=== PATIENT | male | born 2005 | race Caucasian/White ===

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

== ENCOUNTER 2025-01-26 22:09 | Emergency (ER) | payer MEDICAID, SELFPAY ==
[2025-01-26] VITALS (13 sets, daily range): BP systolic 100–119; BP diastolic 15–34; PULSE 81–111; RESP 15–21; TEMP 35.8; O2SAT 95–97
--- NOTE | 2025-01-26 22:15 | DI.RAD_ITS ---
Exam(s) XR SHOULDER LT COMPLETE 2+V EXAM: XR SHOULDER LT COMPLETE 2+V CLINICAL HISTORY: fell on left shoulder. TECHNIQUE: 2D digital imaging was performed. COMPARISON: No exams were available for comparison FINDINGS: Five views. There is no evidence of acute fracture nor dislocation of the glenohumeral joint and no abnormal soft tissue calcifications. The main findings are at the AC joint level where there is significant diastasis/separation of the joint. IMPRESSION: Type 3 left AC joint separation DATA REPOSITORY: RADIATION DOSE DELIVERED:
[2025-01-26] MEDS: Ketorolac 15 MG/ML VIAL IVP (22:33)
[2025-01-26] MEDS: Acetaminophen 500 MG TAB 1000 MG PO (22:33)
--- NOTE | 2025-01-26 22:50 | W.ED.GENAD ---
Discharge Plan Disposition Patient Disposition: Home Condition: Good Discharge Details Clinical Impression: AC separation, type 3 Primary Care Provider: Shun Pearce ED Provider: Kori Grigsby Home Meds and New Rx's Prescriptions: Continued omeprazole 20 mg capsule,delayed release(DR/EC) 20 mg PO DAILY Qty: 30 1RF Discharge Instructions Instructions: shoulder Additional Instructions: Use the sling you were provided. Rest your left arm. Ice, tylenol, and ibuprofen over the counter for pain; follow the directions on the bottle. You will need to see orthopedics; they should call on Tuesday to schedule an appointment. If you do not hear from them by Tuesday please give them a call. Return to the emergency department for new or worsening symptoms including numbness, tingling, or weakness in your left arm, if the skin over your collarbone changes color, severe pain, or if you have any other concerns. Referrals: [facility] [Provider Group] HPI General Mode of arrival: ambulatory. Date/Time Provider Initiated Documentation: 01/26/25 22:21. Limitations to Documentation: no limitations. Information obtained by: patient. HPI Narrative: 20yo previously healthy male presenting with left shoulder injury. Just prior to arrival was running outside playing tag, tripped, and fell on his left shoulder. Resumed playing and then a few minutes later fell again and landed on the same shoulder. Did not strike his head. Pain with any ROM at shoulder; no pain elsewhere including collarbone, elbow, wrist. No numbness or tingling to LUE. Able to range freely at elbow, wrist, and hand without pain. Feels slightly lightheaded which he attributes to pain; had not yet taking anything for pain. Otherwise in his usual state of health with no fevers, chest pain, shortness of breath, other extremity pain, or other concerns. Related Data Home Medications ?Medication ?Instructions ?Recorded ?Confirmed omeprazole 20 mg capsule,delayed 20 mg PO DAILY #30 caps 09/07/23 01/26/25 release Previous Rx's ?Medication ?Instructions ?Recorded omeprazole 20 mg capsule,delayed 20 mg PO DAILY #30 caps 09/07/23 release Allergies Allergy/AdvReac Type Severity Reaction Status Date / Time No Known Allergies Allergy Verified 01/26/25 23:13 General Stated Complaint: Orthopedic STEVEN: 4 Review of Systems Narrative: see HPI Exam Narrative Exam Narrative: General: Alert, diaphoretic Head: Normocephalic, atraumatic Neck: Trachea midline, ?Neck supple. ENT: ?MMM.? Cardiac: ?RRR, no murmurs appreciated Resp: No respiratory distress. CTAB. Abd: ?Soft, non-distended, nontender : ?No suprapubic tenderness. No CVA tenderness. Extremities: Left shoulder held adducted with elbow flexed. Tenderness and deformity over AC joint. No skin tenting. No other bony tenderness to clavicle, shoulder, scapula, humerus, elbow, or wrist. Full pain free ROM and 5/5 strength at wrist, elbow, and all digits; pain with any ROM at shoulder. Is able to abduct left shoulder 90 degrees as well as touch his right shoulder with his left hand. Sensation intact to light touch throughout LUE. Intact brachial, radial, and ulnar pulses symmetric with right. Neurologic: GCS 15. ? Moves all extremities freely against gravity Course Vital Signs Vital signs: Vital Signs Temperature 35.8 C L 01/26/25 22:11 Pulse 111 H 01/26/25 22:11 Respiratory Rate 18 01/26/25 22:11 Blood Pressure 119/15 L 01/26/25 22:11 Pulse Oximetry 97 01/26/25 22:11 Temperature 35.8 C L 01/26/25 22:11 Temperature Source Temporal Artery Scan 01/26/25 22:11 Pulse 111 H 01/26/25 22:11 Respiratory Rate 18 01/26/25 22:11 Blood Pressure 119/15 L 01/26/25 22:11 Blood Pressure Position Sitting 01/26/25 22:11 Pulse Oximetry 97 01/26/25 22:11 Oxygen Delivery Method Room Air 01/26/25 22:11 Oxygen Flow Rate 0 01/26/25 22:11 Pain Level 6 01/26/25 22:33 Medical Decision Making 20yo previously healthy male presenting with left shoulder injury; fell twice just prior to arrival both times landing directly on his left shoulder. Now has pain with ROM at shoulder. No numbness, tingling, or weakness distally. On arrival he is tachycardiac to 110's and somewhat diaphoretic (he had been running around outside in the heat prior to arrival); SBP 110's however diastolic with monitor readings 10's-20's and manual BP with 30's-40's diastolic. Neurovascular intact on exam. Not suspicious for for axillary artery injury or significant nerve injury; no indication for labs or advanced imaging. Will treat pain with tylenol, toradol, and get plain films. Plan to monitor VS for improvement after pain control & rest. On reassessment pain much improved. Appears well. Ambulates easily independently without lightheadedness. HR also improved however diastolic BP remains low (SBP 110's-120's); may be somewhat volume depleted given level of activity and heat today. Will give a liter of fluids and reassess prior to discharge. XR independently reviewed; no displaced fracture or anterior shoulder dislocation on my view, radiology read below with type III left AC separation. Repeat vital signs 150/58 with HR 86. Orthopedic referral sent. Discharged home with sling and advised to followup with orthopedics on Tuesday or Tuesday. Discahrge instructions and return precautions were reviewed with patient who verbalized understanding. All questions were answered and he is in full agreement with the plan. Imaging Data Radiologic Study: Imaging: X-Ray Radiologist's impression: IMPRESSION: Type III left AC separation PFSH All Active Problems (Updated 01/26/25 @ 23:52 by Kori Grigsby MD) AC separation, type 3 (Acute) BMI,pediatric >= 95% (Acute) Nml labs 12/12. Normal CBC, CMP, TSH, hemoglobin A1c, lipids Routine child health exam (Acute 03/23/13) Nevus, non-neoplastic (Acute 03/23/13) Medical History Closed displaced fracture of shaft of right clavicle with routine healing (10/13/16) Fracture of right clavicle in pediatric patient Nevus non-neoplastic Pediatric body mass index (BMI) of 85th percentile to less than 95th percentile for age (06/01/17) Family History Father Hyperlipidemia Grandfather Heart disease PATERNAL Grandfather Heart disease MATERNAL Grandmother Mental disorder DEPRESSION Maternal Uncle Pancreatic cancer FROM Social History (Updated 08/23/22 @ 10:40 by Halima Tineo LPN) Smoking/Tobacco Use Status: Never Smoking risk assessment performed?: Yes Alcohol Intake: current Alcohol Intake frequency: a few times a week Alcohol type: beer Drug use: Occasionally Substance use type: marijuana Housing: house Communication Needs: None Education Level: high school Details: Senior at [employer] Pets and animals: Yes (1 dog at each house) Pets and animals: dog(s) Do you feel safe at home: Yes Do you feel safe in your relationship?: Yes PAWSS Have you Been Recently Intoxicated or Drunk Within the Last 30 days?: No Have you Ever Experienced Previous Episodes of Alcohol Withdrawal?: No Have you ever Experienced Withdrawal Seizures?: No Have you ever Experienced Delirium Tremens(DT)s?: No Have you ever undergone Alcohol Rehabilitation Treatment (i.e, inpt ot outpatient treatment programs)?: No Have you ever Experienced Blackouts?: No Have you ever Combined Alcohol with other Downers within the last 90 days?: No Have you ever Combined Alcohol with any other Substance of Abuse during the last 90 days?: No Positive Blood Alcohol level on Presentation? [PCS.BAL]: No Evidence of Increased Autonomic Activity (i.e. HR>120, tremor, sweating, agitation, nausea)?: No Result: 0
--- NOTE | 2025-01-26 23:35 | DI.VRAD_ITS ---
Addendum created by Adalberto Pacheco MD on 01/26/2025 11:46:56 PM EDT: Please note that the report should have read: FINDINGS: Bones/joints: No acute fracture. No dislocation. Type III left AC separation. No focal osseous lesion. Soft tissues: No soft tissue radiopaque foreign body or soft tissue calcification. IMPRESSION: Type III left AC separation. Initial report created on 01/26/2025 11:35:21 PM EDT: PROCEDURE INFORMATION: Exam: XR Left Shoulder Exam date and time: 01/26/2025 10:51 PM Age: 20 years old Clinical indication: Fall on left shoulder TECHNIQUE: Imaging protocol: Radiologic exam of the left shoulder. Views: 2 or more views. COMPARISON: No relevant prior studies available. FINDINGS: Bones/joints: No acute fracture. No dislocation. Left AC separation. No focal osseous lesion. Soft tissues: No soft tissue radiopaque foreign body or soft tissue calcification. IMPRESSION: Left AC separation. Dictated and Authenticated by: Adalberto Pacheco MD. Orderin Calista Sheikh MD
[2025-01-27] VITALS (22 sets, daily range): BP systolic 101–150; BP diastolic 33–58; PULSE 72–97; RESP 9–21; O2SAT 96–99
--- NOTE | 2025-01-27 18:01 | NUR.NOTE ---
Access chart to get the discharge diagnosis for [facility] billing requisition and to print the demographic sheet. Nursing Note:
== END 2025-01-27 01:41 | disposition home or self-care (01) ==
PROVIDERS: Emergency Provider Student in an Organized Health Care Education/Training Program; PCP Pediatrics
DX: S43.102A Unspecified dislocation of left acromioclavicular joint, initial encounter (principal); W01.0XXA Fall on same level from slipping, tripping and stumbling without subsequent striking against object, initial encounter; Y93.02 Activity, running
CPT/HCPCS: 99283; 99284; 96374; 73030; J1885

== ENCOUNTER 2025-02-05 09:54 | Outpatient (CLI) | payer MEDICAID, SELFPAY ==
--- NOTE | 2025-02-05 08:15 | DI.RAD_ITS ---
Exam(s) XR CLAVICLE LT EXAM: XR CLAVICLE LT CLINICAL HISTORY: evaluate left shoulder/clavicle TECHNIQUE: 2D digital imaging was performed of the left clavicle. Two images were obtained. AP and axial views were obtained. COMPARISON: CR RIGHT CLAVICLE from 09/06/2016 CR RIGHT CLAVICLE LIMITED 1 VIEW from 09/29/2016 CR,XR XR SHOULDER LT COMPLETE 2+V from 01/26/2025 FINDINGS: BONES: No acute fracture is present. No bony destructive lesion is seen. JOINTS: There is again seen a type 3 left acromioclavicular joint separation. SOFT TISSUE: Normal. IMPRESSION: Type 3 left AC joint separation. DATA REPOSITORY: RADIATION DOSE DELIVERED:
== END 2025-02-05 09:55 | disposition home or self-care (01) ==
LOC: DIORS 09:54
PROVIDERS: PCP Pediatrics; Visit Provider Student in an Organized Health Care Education/Training Program
DX: S43.122A Dislocation of left acromioclavicular joint, 100%-200% displacement, initial encounter
CPT/HCPCS: 73000

== ENCOUNTER 2025-02-13 01:55 | Outpatient (CLI) | payer MEDICAID, SELFPAY ==
--- NOTE | 2025-02-13 07:15 | DI.MRI_ITS ---
Exam(s) MR UPPER JOINT LT WO EXAM: MR UPPER JOINT LT WO CLINICAL HISTORY: L SHOULDER PAIN,ac separation, type 3,s43.109a. TECHNIQUE: Multiplanar multisequence MRI was performed. COMPARISON: Plain films 26 January and 05 February 2025 FINDINGS: Exam is limited by motion. BONES: There is no visible discrete fracture. There is some edema in the distal clavicle. JOINTS:The acromioclavicular joint is widened. The distal clavicle is elevated with respect to the acromion. The coracoclavicular ligaments are indistinct consistent with tear. There is fluid in the AC joint and fluid the surrounding soft tissues and along the course of the cortical clavicular ligament.. The glenohumeral joint is normal. TENDONS: Supraspinatus: Unremarkable. Infraspinatus: Unremarkable. Subscapularis: Unremarkable. Teres Minor: Unremarkable. Biceps and Blodgett: Unremarkable. MUSCLES: Some edema in the proximal deltoid, adjacent to the acromion. GLENOID LABRUM: Unremarkable on this noncontrast examination. SOFT TISSUES: Unremarkable. BURSAE: Subacromial and subdeltoid bursae . IMPRESSION: Grade 3 acromioclavicular separation with widening of the acromioclavicular joint and tearing of the cortical clavicular ligament with some surrounding fluid. No evidence of rotator cuff tear. DATA REPOSITORY:
== END 2025-02-13 02:15 ==
PROVIDERS: PCP Pediatrics; Visit Provider Student in an Organized Health Care Education/Training Program
DX: S43.102A Unspecified dislocation of left acromioclavicular joint, initial encounter (principal); X58.XXXA Exposure to other specified factors, initial encounter
CPT/HCPCS: 73221

== ENCOUNTER 2025-02-14 11:58 | Day surgery (SDC) | payer MEDICAID, SELFPAY ==
[2025-02-14] VITALS (19 sets, daily range): BP systolic 93–186; BP diastolic 51–123; PULSE 54–145; RESP 11–24; TEMP 36.3–37; O2SAT 90–99; BMI 28.6
--- NOTE | 2025-02-14 07:13 | W.PM.DSUDISC ---
Date of service: 02/14/25 Discharge Plan Disposition Patient Disposition: Home Condition: Stable Discharge Details Attending Provider: Homar Alamo Primary Care Provider: Shun Pearce Home Meds and New Rx's Prescriptions: New naproxen 250 mg tablet 250 - 500 mg PO BID PRN (Reason: Moderate pain) Qty: 40 0RF oxycodone 5 mg tablet 5 - 10 mg PO Q4H PRN (Reason: Moderate to severe pain) Qty: 18 0RF Continued ibuprofen 400 mg tablet 400 mg PO TID PRN Discharge Instructions Additional Instructions: Surgery: Left shoulder open acromioclavicular joint reconstruction with allograft 02/14/2025 Activity: For 6 weeks, you should use the sling most of the time to support your forearm unless you are resting and it is supported/elevated on pillows. Avoid stressing the repair with gravity. Do NOT allow the arm to dangle at your side. Very light use hand and fingers okay. A physical therapy prescription will be sent at follow-up. After 6 weeks, progress to active assisted and then active range of motion. 120 degree maximal forward elevation for 8 weeks. Avoid cross body adduction for 10 weeks. Strengthening after 12 weeks. Prescriptions: Paper or electronic can be provided Naproxen 250 mg take 1-2 every 12 hours with a meal as needed for moderate pain Oxycodone 5 mg take 1-2 every 4-6 hours as needed for severe pain You may use [id number] Tylenol (acetaminophen) as needed for mild pain. These pain medications may be taken all at once or in different combinations as needed. Also, recommend Colace (docusate) as a stool softener as surgery and pain medicine cause constipation. You may try [id number] diphenhydramine (Benadryl) 25-50 mg nightly as a sleep aid Dressings: Leave shoulder Band-Aid in place until follow-up. Do not shower or get wet. Follow-up: 10-[address] Alamo Stand Alone Forms: Anesthesia Discharge Inst., Isaias Reyes (U) Referrals: Homar Alamo MD [ [facility] STAFF PHYSICIAN, Orthopaedic Surgical] - 02/26/25 9:30 am Discharge Orders Discharge Orders: Discharge Order (Routine); Ordered 02/14/25 Ordered By: Maicol Diehl DS: Diagnosis Discharge Diagnosis (1) Separation of left acromioclavicular joint: Status: Acute
--- NOTE | 2025-02-14 07:29 | W.PM.OP ---
Operative Note Operative Note PRE-OP DIAGNOSIS: Left high-grade AC joint separation POST-OP DIAGNOSIS: same PROCEDURE: Open left AC joint reconstruction with allograft, CPT #07587 SURGEON: Homar Alamo EQUITY STRUCTURER: Maicol Diehl ANESTHESIA TYPE: Local By Surgeon, General LMA/ETT and Primary Nerve Block Refer to Anesthesia Record ESTIMATED BLOOD LOSS: 5 PATHOLOGY: none sent COMPLICATIONS: None Patient was transported to: PACU Patient's condition: stable Implants: Arthrex FiberTape x 2 LifeNet Gracilis tendon 5 mm x 260 mm Indications: The patient was diagnosed with the above conditions and appropriately indicated for surgical intervention. Please see complete medical record for details. Findings: Significantly superior and posteriorly displaced distal clavicle with disrupted AC capsule and CC ligaments. Nearly subcutaneous distal clavicle. Procedure Description: In the operating room, general anesthesia was induced. The patient was positioned in the beachchair position. All bony prominences were well-padded. Preoperative antibiotics were administered. The shoulder was prepped and draped in the usual sterile fashion. The correct patient, procedure, and side of the procedure were all verified prior to incision. Direct superior moderately sized incision over the prominent distal clavicle and acromion was preinjected with 30 cc of 0.25% bupivacaine. Sharp dissection was carried raising full-thickness layers and readily exposing the quite prominent and a nearly subcutaneous distal clavicle. Blunt elevation was used to expose the lateral aspect of the distal clavicle as it was largely balled and devoid of soft tissue attachments. The rongeur was used to lightly smoothed the superior lateral margin as well as remove a minimal amount of soft tissue attachments medially and laterally. Attention was then turned to the AC joint and interposed tissue was removed while carrying the full-thickness layer exposure onto the medial aspect of the acromion. The graft was prepared on the back table with fiber loop sutures on either end and soaked in warm saline with vancomycin powder. The distal clavicle was prepared for graft passage in its elevated position drilling about 15 mm off the AC joint with the 3.5 mm and then 4.0 mm drills. The [address] was [address] shuttle FiberLink's. The looped end of these links were then used to shuttle each end of the graft and a FiberTape and tiger tape up from beneath to to superior. The acromion was then prepared similarly about a centimeter off the joint with the drills, lasso, and then links for shuttling. The distal clavicle was partially reduced and the graft and FiberTape's shuttled from the superior aspect of the distal clavicle through the AC joint and up from beneath the acromion. The extremity was then supported with the spider and the slack and creep removed from the tapes and graft carefully ensuring good suture and tendon orientation. There was excellent reduction from superior and posterior of the distal clavicle relative to the acromion. The FiberTape was then tied with surgeons knots to maintain this provisional reduction. [place] allowed back on the extremity and there was no motion or displacement at the AC joint. The allograft tails were then weaved and then secured with a tapered needle suture tape. The remaining FiberTape were then tied as added internal bracing with surgeons knots. The fiber tape tails were cut. The graft tails were then brought from the superior acromion across the superior AC joint and secured along the anterior and posterior margins with reflected capsule as part of an anterior and posterior superior capsular repair/reconstruction. The construct was tested and quite stable and secure. The wound was copiously irrigated with normal saline. The full-thickness fascial layer was closed watertight using buried 0 Vicryl [id number] interrupted. Superficial layers irrigated and then closed using 2-0 Monocryl buried interrupted followed by 3-0 Monocryl running subcuticular in the skin. Skin glue was applied over the incision followed by Mepilex bandage. The operative extremity was placed into a sling for immobilization. The patient awoke from anesthesia without complication and was transferred to the recovery room in a stable condition. Date of Procedure: 02/14/25
--- NOTE | 2025-02-14 12:39 | W.ANESPRE ---
General Info Date of Service Date Performed: 02/14/25 Height: 6 ft Weight: 95.9 kg Body Mass Index (BMI): 28.6 Surgical Procedure: Operation Date: 02/14/25 14:10 Proposed Procedure Side Surgeon p Shoulder Open Acromioclavicular Joint Reconstruction w/Allograft Left Homar Alamo MD Meds Allergies and Home Medications Allergies Allergy/AdvReac Type Severity Reaction Status Date / Time No Known Allergies Allergy Verified 02/14/25 12:26 Home Medication ?Medication ?Instructions ?Recorded ibuprofen 400 mg tablet 400 mg PO TID PRN 02/05/25 Current Visit Medications: Current Medications Generic Name Dose Route Start Last Admin Trade Name Freq PRN Reason Stop Dose Admin Ringer's Solution 1,000 mls @ 30 mls/hr 02/14/25 06:00 IV 02/14/25 23:59 INFUSION MAIRA Cefazolin Sodium/Dextrose 2 gm in 50 mls @ 100 mls/hr 02/14/25 06:00 Ancef Duplex IVPB 02/14/25 23:59 PREOP MAIRA Tranexamic Acid/Sodium Chloride 1,000 mg in 100 mls @ 600 mls/hr 02/14/25 06:00 IVPB 02/14/25 23:59 PREOP MAIRA IV Miscellaneous Supplies 1 each 02/14/25 06:00 Iv Access IV 02/14/25 23:59 DIRECTED MAIRA Oxycodone HCl 0 mg 02/14/25 07:16 Oxycodone 5 Mg Tab PO 03/16/25 07:15 Q3H PRN PRN Pain Sodium Chloride 0 ml 02/14/25 06:00 Normal Saline Flush 10 Ml Syr IV 02/14/25 23:59 PRN PRN Sodium Chloride 0 ml 02/14/25 06:00 Normal Saline 10 Ml Vial IJ 02/14/25 23:59 DIRECTED PRN Sterile Water 0 ml 02/14/25 06:00 Water,Injection,Sterile 10 Ml Vial IJ 02/14/25 23:59 DIRECTED PRN PFSH Active Problems Active Problems: Problem Status Onset Code Separation of left acromioclavicular joint Acute S43.102A AC separation, type 3 Acute S43.109A BMI,pediatric >= 95% Acute Z68.54 Routine child health exam Acute 03/23/13 Z00.129 Nevus, non-neoplastic Acute 03/23/13 I78.1 Medical History Medical History Closed displaced fracture of shaft of right clavicle with routine healing (10/13/16) Fracture of right clavicle in pediatric patient Nevus non-neoplastic Pediatric body mass index (BMI) of 85th percentile to less than 95th percentile for age (06/01/17) Tobacco Smoking/Tobacco Use Status: Current every day Tobacco Type: cigarettes Passive smoking exposure: No Alcohol Alcohol Intake: current Alcohol intake frequency: 0-2 drinks per day Alcohol type: beer Substance Use Substance use: Daily Substance use type: marijuana Vital Signs and Lab Results Vital Signs Most Recent Vital Signs in EMR: Most Recent Vital Signs Temp Pulse Resp BP Pulse Ox 37 C 67 16 154/70 H 99 02/14/25 12:26 02/14/25 12:26 02/14/25 12:26 02/14/25 12:26 02/14/25 12:26 Anesthesia Assessment and Plan Anesthesia History Personal History: No History of Anesthesia Complications Family History: No Family History of Anesthesia Complications Exercise Tolerance Exercise Tolerance: Metabolic Equivalents>4 Pertinent Negatives Pertinent Negatives: No Symptoms of GERD Cardiac & Pulmonary Exam Cardiac Exam: Normal S1/S2 Heart Sounds Pulmonary Exam: Clear Bilateral Breath Sounds Implantable Cardiac Device Does patient have a Pacemaker or an ICD?: No Airway Exam Known Difficult Airway: No Mallampati Class: 2 Mouth Opening: Normal (> 3cm) Thyromental Distance: Greater than 3 cm Neck Range of Motion: Full ROM Neck Circumference: Normal Teeth Condition: Normal Dentition ASA Classification ASA Score: ASA 2 Emergency Case?: No NPO Status NPO Status: NPO Clears >2 hours, Solids >8 hours Anesthesia Plan Resuscitation Status: Full Code Anesthesia Technique: General Anesthesia Airway Planned: Endotracheal Tube Pain Management: Surgeon and patient request nerve block Monitors Used: Standard Monitors
[2025-02-14] MEDS: Lactated Ringers 1,000 ML 30 ML IV (13:10)
[2025-02-14] MEDS: ceFAZolin 2 GM/50 ML BAG IVPB (14:03)
[2025-02-14] MEDS: TRANEXAMIC ACID/SOD. CHL. 1,000 MG/100 ML BAG 600 MG IVPB (14:10)
--- NOTE | 2025-02-14 14:42 | W.ANESNERVE ---
Nerve Block Single Injection Procedure Date and Time Date Performed: 02/14/25 Procedure Start: 13:29 Location Where Procedure Performed Procedure Location: Day Surgery Unit Reason Performed: Postoperative Analgesia Requesting Provider: Homar Alamo Timeout Performed Timeout Performed: Yes Monitoring Used ECG, Blood Pressure, SpO2, ETCO2 and See EMR for corresponding vital signs Sterility Sterility: Hand Hygiene, Surgical Cap, Surgical Mask, Sterile Gloves, Eye Protection and Chlorhexidine Sedation Given During Procedure Sedation Given (Indicate Dose Given): Versed IV Dose:: 4mg IVP Patient Mental Status Patient Mental Status: Sedate with meaningful communication Nerve Block 1st Nerve Block: Laterality: Left Block Type: Interscalene Ultrasound Image Saved?: Yes Needle / Catheter Used: 80mm SonoPlex II Local Anesthetic Bolus (Indicate Dose Given): Lidocaine used for local infiltration of skin, Injected in 3-5ml increments after negative blood aspiration, Bupivacaine 0.5% Dose:: 0.5%/10cc (50mg) and Exparel Dose:: 1.3%/10cc (133mg) Additives (Indicate Dose Given): Epinephrine to make 1:200,000 (5mcg/ml) (with 0.5% Bupiv only) Dose:: 50mcg Ultrasound: Sterile probe cover and gel used Nerve Stimulator: Supplement to Ultrasound use and No twitch or parasthesia noted < 0.5 mA Paresthesia: None Procedure Tolerated: No Complications and Patient tolerated well Procedure Outcome: Successful Performed By: Dewayne Levin 2nd Nerve Block: Laterality: Left Block Type: Superficial Cervical Plexus Ultrasound Image Saved?: Yes Needle / Catheter Used: 80mm SonoPlex II Local Anesthetic Bolus (Indicate Dose Given): Bupivacaine 0.5% Dose:: 0.5%/5cc (25mg) Additives (Indicate Dose Given): Epinephrine to make 1:200,000 (5mcg/ml) Dose:: 25mcg Ultrasound: Sterile probe cover and gel used Nerve Stimulator: Supplement to Ultrasound use and No twitch or parasthesia noted < 0.5 mA Paresthesia: None Procedure Tolerated: No Complications and Patient tolerated well Procedure Outcome: Successful Performed By: Dewayne Levin
[2025-02-14] MEDS: Vancomycin 1,000 MG VIAL 1000 MG (15:02)
[2025-02-14] MEDS: Bupivacaine 0.25% Pres-Free W/EPI 30 ML VIAL (15:02)
--- NOTE | 2025-02-14 16:30 | DI.RAD_ITS ---
Exam(s) XR SHOULDER LT 1V EXAM: XR SHOULDER LT 1V CLINICAL HISTORY: post op, portable PACU. TECHNIQUE: 2D digital imaging was performed of the left shoulder. Images were obtained. AP, Grashey, Y-view and axillary views were obtained. COMPARISON: CR,XR XR SHOULDER LT COMPLETE 2+V from 01/26/2025 FINDINGS: Following surgery, the bones are intact. The soft tissues are unremarkable. There is normal alignment of the coracoclavicular and the acromioclavicular distances, which are now within normal limits. IMPRESSION: DATA REPOSITORY: RADIATION DOSE DELIVERED:
--- NOTE | 2025-02-14 17:04 | W.ANESPOSTOP ---
Postoperative Evaluation Date, Time and Location Date Performed: 02/14/25 Time Performed: 17:04 Patient Location: Day Surgery Unit Vital Signs Most Recent Imported Vital Signs: Most Recent Vital Signs Temp Pulse Resp BP Pulse Ox 36.5 C 54 L 16 121/69 95 02/14/25 16:50 02/14/25 16:50 02/14/25 16:50 02/14/25 16:50 02/14/25 16:50 Pain Score Most Recent Pain Score: Most Recent Pain Score Pain Level 0 02/14/25 16:50 Assessment Mental Status: Awake (Alert & Oriented to Patient Baseline) Airway and Respiratory Function: Patent airway with normal (patient baseline) respiratory exam Cardiovascular Function: Hemodynamically Stable Hydration Status: Adequately Hydrated Nausea & Vomiting: No Nausea or Vomiting Pain: Pt. Denies Any Pain Peripheral Nerve Block: Regional nerve block not resolved at time of post operative discharge
== END 2025-02-14 17:42 | disposition home or self-care (01) ==
PROVIDERS: PCP Pediatrics; Visit Provider Student in an Organized Health Care Education/Training Program
PROC: (CPT 23552; principal; 2025-02-14 14:00)
DX: S43.102A Unspecified dislocation of left acromioclavicular joint, initial encounter (principal); X58.XXXA Exposure to other specified factors, initial encounter; G89.18 Other acute postprocedural pain
CPT/HCPCS: 23552; 64415; 64450; 73020; J0166; J0665; J0666; J0690; J1885; J2003; J2250; J2371; J2704; J3373

== ENCOUNTER 2025-02-26 10:09 | Outpatient (CLI) | payer MEDICAID, SELFPAY ==
--- NOTE | 2025-02-26 09:15 | DI.RAD_ITS ---
Exam(s) XR SHOULDER LT 1V EXAM: XR SHOULDER LT 1V CLINICAL HISTORY: F/U ACJ RECONSTRUCTION. TECHNIQUE: 2D digital imaging was performed of the left shoulder. One images were obtained. AP neutral views were obtained. COMPARISON: CR XR SHOULDER LT 1V from 02/14/2025 FINDINGS: There is stable alignment of the acromioclavicular joint following reconstruction. The glenohumeral joint is grossly unremarkable on the single image. The bones are normally mineralized. The soft tissues are grossly unremarkable. IMPRESSION: Stable alignment of the left acromioclavicular joint. DATA REPOSITORY: RADIATION DOSE DELIVERED:
== END 2025-02-26 10:10 | disposition home or self-care (01) ==
LOC: DIORS 10:10
PROVIDERS: PCP Pediatrics; Visit Provider Student in an Organized Health Care Education/Training Program
DX: S43.102A Unspecified dislocation of left acromioclavicular joint, initial encounter (principal)
CPT/HCPCS: 73020

== ENCOUNTER 2025-04-30 11:08 | Outpatient (CLI) | payer MEDICAID, SELFPAY ==
--- NOTE | 2025-04-30 09:30 | DI.RAD_ITS ---
Exam(s) XR SHOULDER LT 1V EXAM: XR SHOULDER LT 1V CLINICAL HISTORY: F/U ACJ RECONSTRUCTION. TECHNIQUE: 2D digital imaging was performed of the left shoulder. One images were obtained. AP views were obtained. COMPARISON: CR,XR XR SHOULDER LT COMPLETE 2+V from 01/26/2025 CR XR SHOULDER LT 1V from 02/14/2025 CR XR SHOULDER LT 1V from 02/26/2025 FINDINGS: Since the prior examination there is now a grade 3 dislocation of the left acromioclavicular joint. There are well corticated osseous densities inferior to the distal clavicle which appear chronic. IMPRESSION: Interval left AC joint separation. DATA REPOSITORY: RADIATION DOSE DELIVERED:
== END 2025-04-30 11:09 | disposition home or self-care (01) ==
LOC: DIORS 11:08
PROVIDERS: PCP Pediatrics; Visit Provider Student in an Organized Health Care Education/Training Program
DX: S43.102A Unspecified dislocation of left acromioclavicular joint, initial encounter (principal)
CPT/HCPCS: 73020